=== PATIENT | female | born 1965 | race Two or more races ===

== ENCOUNTER 2023-02-22 11:15 | Inpatient (IN) | payer OTHER ==
[~2023-02-22] VITALS: Ht 154.9 cm; Wt 63.5 kg
[2023-02-22] MEDS ORDERED: TRADJENTA5 MG PO (15:56)
[2023-02-22] MEDS ORDERED: ACTOS15 MG PO (15:56)
[2023-02-22] MEDS ORDERED: LANTUS SOL100 UNIT/1 (15:56)
[2023-02-22] MEDS ORDERED: LOSARTAN POTASS50 MG PO (15:57)
[2023-03-01 08:26] LABS: HEMATOCRIT 37.1 % (36.0-45.00); HEMOGLOBIN 12.3 g/dL (12.0-15.00); MEAN CELL VOLUME 87.3 fL (80.00-100.00); MEAN CORPUSCULAR HEMOGLOBIN 28.9 pg (27.00-32.0); PLATELET COUNT 198 K/uL (150-450); RED BLOOD COUNT 4.25 M/uL (4.00-6.00); RED CELL DISTRIBUTION WIDTH 13.7 % (11.5-14.5)
[2023-03-01 08:36] LABS: ALBUMIN 2.9 gm/dL (3.4-5.0); CALCIUM 8.3 mg/dL (8.5-10.1); CREATININE SERUM 0.86 mg/dL (0.55-1.02); GFR 67.77; PHOSPHOROUS 2.8 mg/dL (2.5-4.9); POTASSIUM 4.02 mEq/L (3.5-5.1)
== END 2023-03-01 12:39 | disposition home or self-care (01) | DRG 661 ==
LOC: O/R 02-28 05:18 → SURG 02-28 05:18 → SURH 02-28 07:00 → SURG 02-28 16:51
PROVIDERS: ADMIT Urology; ATTEND Urology
PROC: 0TT04ZZ Resection of Right Kidney, Percutaneous Endoscopic Approach (ICD-10-PCS; principal; 2023-02-28 07:00)
DX: N11.8 Other chronic tubulo-interstitial nephritis (principal); N26.9 Renal sclerosis, unspecified; Z20.822 Contact with and (suspected) exposure to COVID-19